=== PATIENT | female | born 2000 | race African-American/Black ===

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

== ENCOUNTER 2021-03-31 18:49 | Emergency (ER) | payer OTHER ==
[2021-03-31 19:29] VITALS: BP 132/74; PULSE 65; RESP 20; TEMP 98.1
[2021-03-31] MEDS ORDERED: SODIUM CHLORIDE 0.9% 1,000 ML IV STA (20:19)
[2021-03-31 21:07] LABS: Basophils # (A) 0.1 k/uL (0-0.2); Basophils % (A) 1 %; Eosinophils # (A) 0.3 k/uL (0-0.7); Eosinophils % (A) 4 %; HGB 11.6 gm/dL (11.4-16.0); Lymphocytes # (A) 2.8 k/uL (1.0-4.8); Lymphocytes % (A) 35 %; MCH 30.6 pg (25.0-35.0); MCHC 32.3 g/dL (31.0-37.0); MCV 94.9 fL (80.0-100.0); Mean Platelet Volume 8.2; Monocytes # (A) 0.4 k/uL (0-1.0); Monocytes % (A) 5 %; Neutrophils # (A) 4.2 k/uL (1.3-7.7); Neutrophils % (A) 53 %; Platelet Count 263 k/uL (150-450); RDW 12.5 % (11.5-15.5); WBC 7.9 k/uL (4.0-11.0)
[2021-03-31 21:15] LABS: ALT 12 U/L (4-34); AST 21 U/L (14-36); African American GFR (CKD) >90 (>60 ml/min/1.73 sqM); Alkaline Phosphatase 49 U/L (38-126); Anion Gap 7 mmol/L; Blood Urea Nitrogen 8 mg/dL (7-17); Calcium 9.9 mg/dL (8.4-10.2); Carbon Dioxide 24 mmol/L (22-30); Chloride 108 mmol/L (98-107); Glucose 79 mg/dL (74-99); Non-African American GFR(CKD) >90 (>60 ml/min/1.73 sqM); Potassium 4.3 mmol/L (3.5-5.1); Sodium 139 mmol/L (137-145); Total Bilirubin 0.3 mg/dL (0.2-1.3); Total Protein 6.8 g/dL (6.3-8.2)
--- NOTE | 2021-03-31 21:26 | US ---
EXAMINATION TYPE: Transabdominal DATE OF EXAM: 03/31/2021 8:59 PM COMPARISON: NONE CLINICAL HISTORY: vaginal bleeding. Bleeding x 1 day, 2, para 1 EXAM PERFORMED: Transabdominal (TA) EXAM MEASUREMENTS: GESTATIONAL AGE / DATING Physician Established: Not yet established Dates by LMP: (4 weeks/1 days) EDC: 12/07/2021 Dates by First Scan: No previous this is first scan Dates by Current Scan for: No IUP seen at this time MATERNAL ANATOMY Uterus: 7.8 x 6.1 x 5.8cm Right Ovary: 2.7 x 2.2 x 2.3cm Left Ovary: 3.2 x 1.4 x 2.4cm Post CDS / Adnexa: wnl Presence of free fluid: no Presence of corpus luteal cyst: not seen Presence of subchorionic bleed: no GESTATION / SURVEY IUP: No IUP seen at this time Date of LMP: 03/02/2021 Beta HcG (if available): Not available at time of exam IMPRESSION: 1. Interpretation assumes positive beta-hCG. 2. No Intrauterine uterine gestational sac or yolk sac is seen. Differential diagnosis includes marshall y nonvisualized , nonvisualized ectopic or failed . Correlate with beta h CG and ultrasound. 3. Unremarkable sonographic appearance of the uterus and bilateral ovaries.
[2021-03-31 21:33] LABS: HCG,Quantitative Serum 375.1 mIU/mL
--- NOTE | 2021-03-31 21:49 | ED ---
Female Urogenital HPI - General Chief complaint: Vaginal Bleeding Stated complaint: Early /Vaginal Bleeding Time Seen by Provider: 03/31/21 20:05 Source: patient Mode of arrival: ambulatory Limitations: no limitations - History of Present Illness Initial comments: 21-year-old female, 8 weeks , presenting to the emergency department with a chief complaint of vaginal bleeding. Patient reports that she noticed some bleeding after her boyfriend was inserted his fingers in her vagina for stimulation. The boyfriend reports that once remove his fingers, he noticed a little bit of blood, bright red. She states then the avoid any intercourse. Patient reports that has been no bleeding since. This was earlier in the day. She denies any vaginal itching, discharge or foul smell. Denies increased urgency or frequency or dysuria. Denies any abdominal or back pain. Denies any nausea vomiting or diarrhea. Last pressure. 03/02/21. States she has an appointment with a clinic on Saturday. Last Menstrual Period: 03/04/21 - Related Data Home Medications Medication Instructions Recorded Confirmed Omeprazole [PriLOSEC] 1 tab PO ONCE 12/04/20 12/04/20 Ondansetron [Zofran] 4 mg PO Q8HR PRN 12/04/20 12/04/20 Pnv No.95/Ferrous Fum/Folic AC 1 each PO ONCE 12/04/20 12/04/20 [ Multivitamin Tablet] Allergies Allergy/AdvReac Type Severity Reaction Status Date / Time No Known Allergies Allergy Verified 03/31/21 19:30 Review of Systems ROS Statement: Those systems with pertinent positive or pertinent negative responses have been documented in the HPI. ROS Other: All systems not noted in ROS Statement are negative. Past Medical History Past Medical History: GERD/Reflux Additional Past Medical History / Comment(s): Pt reports issues with kidneys when she was 15 History of Any Multi-Drug Resistant Organisms: None Reported Past Surgical History: No Surgical Hx Reported Past Anesthesia/Blood Transfusion Reactions: No Reported Reaction Past Psychological History: No Psychological Hx Reported Smoking Status: Current every day smoker Past Alcohol Use History: None Reported Past Drug Use History: Marijuana - Past Family History Mother History Unknown: Yes Family Medical History: Asthma, Diabetes Mellitus, Hypertension Additional Family Medical History / Comment(s): Uterine cancer General Exam Limitations: no limitations General appearance: alert, in no apparent distress Head exam: Present: atraumatic, normocephalic, normal inspection Eye exam: Present: normal appearance, PERRL, EOMI Pupils: Present: normal accommodation ENT exam: Present: normal exam, normal oropharynx, mucous membranes moist Neck exam: Present: normal inspection, full ROM. Absent: tenderness Respiratory exam: Present: normal lung sounds bilaterally. Absent: respiratory distress Cardiovascular Exam: Present: regular rate, normal rhythm, normal heart sounds. Absent: systolic murmur, diastolic murmur, rubs GI/Abdominal exam: Present: soft. Absent: distended, tenderness, guarding, rebound, rigid Extremities exam: Present: normal inspection, full ROM, normal capillary refill. Absent: tenderness, pedal edema, joint swelling Back exam: Present: normal inspection, full ROM. Absent: tenderness Neurological exam: Present: alert, oriented X3 Psychiatric exam: Present: normal affect, normal mood Skin exam: Present: warm, dry, intact, normal color Course Vital Signs 03/31/21 19:25 Temperature 98.1 F Pulse Rate 65 Respiratory 20 Rate Blood Pressure 132/74 O2 Sat by Pulse 100 Oximetry Medical Decision Making - Medical Decision Making 21-year-old female, , 8 weeks presents to emergency Department with chief complaint of vaginal bleeding. On physical examination, patient is well-appearing and resting comfortable. No abdominal tenderness. Pelvic examination was offered, she declined. Laboratory work obtained was unremarkable. Patient was not able to give a urine sample. Beta hCG Quant was 375. Ultrasound, transvaginal, performed shows no intrauterine gestational sac seen yet. I do suspect that it is too early to detect anything at this time. Patient has an appointment in 2 days with the clinic where they will obtain a repeat ultrasound. I also advised her to obtain a repeat beta hCG. Patient is fully understanding and agreeable. Blood type is A+. Return parameters were discussed with patient is a 70 agreeable. Case discussed physician. - Lab Data Result diagrams: 03/31/21 20:27 03/31/21 20:27 Lab Results 03/31/21 03/31/21 03/31/21 Range/Units 20:15 20:27 20:27 WBC 7.9 (4.0-11.0) k/uL RBC 3.80 (3.80-5.40) m/uL Hgb 11.6 (11.4-16.0) gm/dL Hct 36.0 (34.0-46.0) % MCV 94.9 (80.0-100.0) fL MCH 30.6 (25.0-35.0) pg MCHC 32.3 (31.0-37.0) g/dL RDW 12.5 (11.5-15.5) % Plt Count 263 (150-450) k/uL MPV 8.2 Neutrophils % 53 % Lymphocytes % 35 % Monocytes % 5 % Eosinophils % 4 % Basophils % 1 % Neutrophils # 4.2 (1.3-7.7) k/uL Lymphocytes # 2.8 (1.0-4.8) k/uL Monocytes # 0.4 (0-1.0) k/uL Eosinophils # 0.3 (0-0.7) k/uL Basophils # 0.1 (0-0.2) k/uL Sodium 139 (137-145) mmol/L Potassium 4.3 (3.5-5.1) mmol/L Chloride 108 H (98-107) mmol/L Carbon Dioxide 24 (22-30) mmol/L Anion Gap 7 mmol/L BUN 8 (7-17) mg/dL Creatinine 0.67 (0.52-1.04) mg/dL Est GFR (CKD-EPI)AfAm >90 (>60 ml/min/1.73 sqM) Est GFR (CKD-EPI)NonAf >90 (>60 ml/min/1.73 sqM) Glucose 79 (74-99) mg/dL Calcium 9.9 (8.4-10.2) mg/dL Total Bilirubin 0.3 (0.2-1.3) mg/dL AST 21 (14-36) U/L ALT 12 (4-34) U/L Alkaline Phosphatase 49 (38-126) U/L Total Protein 6.8 (6.3-8.2) g/dL Albumin 4.0 (3.5-5.0) g/dL HCG, Quant 375.1 mIU/mL Blood Type A Positive Blood Type Recheck A Pos Bld Type Recheck Status No Antibody Screen NEGATIVE Disposition Clinical Impression: Vaginal bleeding Disposition: HOME SELF-CARE Condition: Stable Instructions (If sedation given, give patient instructions): First Trimester (ED) Additional Instructions: Follow-up with her OB. Return to emergency department if symptoms worsen. Is patient prescribed a controlled substance at d/c from ED?: No Referrals: Abrahan Castillo [Primary Care Provider] - 1-2 days Time of Disposition: 21:49
== END 2021-03-31 22:29 | disposition home or self-care (01) ==
LOC: EC 18:49
DX: O46.91 Antepartum hemorrhage, unspecified, first trimester (principal); O99.611 Diseases of the digestive system complicating pregnancy, first trimester; O99.331 Smoking (tobacco) complicating pregnancy, first trimester; F17.200 Nicotine dependence, unspecified, uncomplicated; K21.9 Gastro-esophageal reflux disease without esophagitis; Z79.899 Other long term (current) drug therapy; Z3A.00 Weeks of gestation of pregnancy not specified
CPT/HCPCS: 36415; 76801; 80053; 84702; 85025; 86850; 86900; 86901; 96360; 99284

== ENCOUNTER 2021-04-05 11:23 | Emergency (ER) | payer OTHER ==
[2021-04-05 11:33] VITALS: BP 128/83; PULSE 57; RESP 18; TEMP 98.3
[2021-04-05 13:11] LABS: Appearance,Urine Cloudy (Clear); Bacteria,Urine Rare /hpf; Bilirubin,Urine Negative (Negative); Blood,Urine Large (Negative); Color,Urine Light Red; Glucose,Urine (UA) Negative (Negative); Ketones,Urine Trace (Negative); Leukocyte Esterase,Urine Negative (Negative); Mucus,Urine Occasional /hpf; Nitrite,Urine Negative (Negative); PH, Urine 5.5 (5.0-8.0); Protein,Urine 1+ (Negative); RBC,Urine >182 /hpf (0-5); Specific Gravity,Urine 1.034 (1.001-1.035); Squamous Epithelial Cell,Urine 2 /hpf (0-4); Urobilinogen,Urine <2.0 mg/dL (<2.0); WBC,Urine 10 /hpf (0-5)
--- NOTE | 2021-04-05 15:27 | US ---
EXAMINATION TYPE: Transabdominal DATE OF EXAM: 04/05/2021 3:04 PM COMPARISON: 03/31/21 CLINICAL HISTORY: bleeding, cramping. Heavy bleeding for 1 hour. HCG 37 EXAM PERFORMED: Transabdominal (TA) EXAM MEASUREMENTS: GESTATIONAL AGE / DATING Dates by LMP: (4 weeks/6 days) EDC: 12/07/2021 MATERNAL ANATOMY Uterus: 9.6x4.8x5.5cm Right Ovary: 2.8x1.3x2.1cm Left Ovary: 3.2x1.2x1.5cm Post CDS / Adnexa: WNL Presence of free fluid: No Presence of corpus luteal cyst: No Presence of subchorionic bleed: No GESTATION / SURVEY IUP: No IUP seen at this time Date of LMP: 03/02/21 Beta HcG (if available): 37 Endometrium measures 1.4cm Grayscale, color Doppler, spectral Doppler imaging performed of the ovaries, vascular waveforms are n oted bilaterally, there is color flow IMPRESSION: The endometrium appears prominently but is less thick than on prior exam, correlate with serial beta hCG. There is no adnexal mass or intrauterine identified. Follow-up as indicated.
--- NOTE | 2021-04-05 16:21 | ED ---
General Adult HPI - General Chief complaint: Vaginal Bleeding Stated complaint: early , vaginal bleeding Time Seen by Provider: 04/05/21 13:58 Source: patient, RN notes reviewed Mode of arrival: ambulatory Limitations: no limitations - History of Present Illness Initial comments: Patient is a 21-year-old female that presents to emergency department complaining of vaginal spotting and cramping. She is 5 weeks . Last vessel cycle was 03/02/2021. She'll the cramping was very mild. She has had previous pregnancies in the past with no issue. She thinks that she is A+ but is not 100% for certain. She denied any other issues or complaints this time. She denied any chest pain shortness breath headache nausea vomiting diarrhea con stipation fever fatigue chills - Related Data Home Medications Medication Instructions Recorded Confirmed Omeprazole [PriLOSEC] 1 tab PO ONCE 12/04/20 12/04/20 Ondansetron [Zofran] 4 mg PO Q8HR PRN 12/04/20 12/04/20 Pnv No.95/Ferrous Fum/Folic AC 1 each PO ONCE 12/04/20 12/04/20 [ Multivitamin Tablet] Allergies Allergy/AdvReac Type Severity Reaction Status Date / Time No Known Allergies Allergy Verified 04/05/21 11:31 Review of Systems ROS Statement: Those systems with pertinent positive or pertinent negative responses have been documented in the HPI. ROS Other: All systems not noted in ROS Statement are negative. Past Medical History Past Medical History: GERD/Reflux Additional Past Medical History / Comment(s): Pt reports issues with kidneys when she was 15 History of Any Multi-Drug Resistant Organisms: None Reported Past Surgical History: No Surgical Hx Reported Past Anesthesia/Blood Transfusion Reactions: No Reported Reaction Past Psychological History: No Psychological Hx Reported Smoking Status: Former smoker Past Alcohol Use History: None Reported Past Drug Use History: Marijuana - Past Family History Mother History Unknown: Yes Family Medical History: Asthma, Diabetes Mellitus, Hypertension Additional Family Medical History / Comment(s): Uterine cancer General Exam Limitations: no limitations General appearance: alert, in no apparent distress Head exam: Present: atraumatic, normocephalic, normal inspection Eye exam: Present: normal appearance, PERRL, EOMI. Absent: scleral icterus, conjunctival injection, periorbital swelling ENT exam: Present: normal exam Neck exam: Present: normal inspection Respiratory exam: Present: normal lung sounds bilaterally. Absent: respiratory distress, wheezes, rales, rhonchi, stridor Cardiovascular Exam: Present: regular rate, normal rhythm, normal heart sounds. Absent: systolic murmur, diastolic murmur, rubs, gallop, clicks GI/Abdominal exam: Present: soft, normal bowel sounds. Absent: distended, tenderness, guarding, rebound, rigid External exam: Present: normal external exam. Absent: erythema, swelling Speculum exam: Present: vaginal bleeding Extremities exam: Present: normal inspection, full ROM, normal capillary refill. Absent: tenderness, pedal edema, joint swelling, calf tenderness Neurological exam: Present: alert, oriented X3 Psychiatric exam: Present: normal affect, normal mood Skin exam: Present: warm, dry, intact, normal color. Absent: rash Course Vital Signs 04/05/21 11:31 Temperature 98.3 F Pulse Rate 57 L Respiratory 18 Rate Blood Pressure 128/83 O2 Sat by Pulse 99 Oximetry Medical Decision Making - Medical Decision Making 2-year-old female with vaginal bleeding and cramping, 5 weeks . Urine hCG, urinalysis, serum hCG, ABO/Rh fracture, ultrasound ordered. Serum hCG 37, urinalysis shows moderate red blood cells. Ultrasound shows no intrauterine at this time. Serial hCGs was recommended. Patient was written a prescription for repeat hCGs and 48 hours. Nurse reported that patient left after giving blood for blood type. Patient was instructed that in her best interest to stay until results came in. Case discussed with Dr. Richard. - Lab Data Lab Results 04/05/21 04/05/21 04/05/21 Range/Units 12:16 12:16 14:49 HCG, Quant 37.1 mIU/mL Urine Color Light Red Urine Appearance Cloudy H (Clear) Urine pH 5.5 (5.0-8.0) Ur Specific Sheldon 1.034 (1.001-1.035) Urine Protein 1+ H (Negative) Urine Glucose (UA) Negative (Negative) Urine Ketones Trace H (Negative) Urine Blood Large H (Negative) Urine Nitrite Negative (Negative) Urine Bilirubin Negative (Negative) Urine Urobilinogen <2.0 (<2.0) mg/dL Ur Leukocyte Esterase Negative (Negative) Urine RBC >182 H (0-5) /hpf Urine WBC 10 H (0-5) /hpf Ur Squamous Epith Cells 2 (0-4) /hpf Urine Bacteria Rare H (None) /hpf Urine Mucus Occasional H (None) /hpf Trichomonas Ag (Rapid) Positive H (Negative) Disposition Clinical Impression: Threatened Disposition: HOME SELF-CARE Condition: Stable Instructions (If sedation given, give patient instructions): Dysmenorrhea (ED) Additional Instructions: Please return to the Emergency Department if symptoms worsen or any other concerns. Repeat beta hCGs within 48 hours. follow-up with SENIOR PROGRAM MANAGER this is possible. Is patient prescribed a controlled substance at d/c from ED?: No Referrals: Abrahan Castillo [Primary Care Provider] - 1-2 days Time of Disposition: 16:38
[2021-04-06 16:42] LABS: C. trachomatis,PCR Negative (Neg,Equiv); Chlamydia trachomatis Source Vagina; N. gonorrhoeae,PCR Negative (Neg,Equiv); Neisseria Source Vagina
== END 2021-04-05 16:20 | disposition home or self-care (01) ==
LOC: EC 11:23
DX: O20.0 Threatened abortion (principal); K21.9 Gastro-esophageal reflux disease without esophagitis; Z87.891 Personal history of nicotine dependence; F12.90 Cannabis use, unspecified, uncomplicated; Z3A.01 Less than 8 weeks gestation of pregnancy
CPT/HCPCS: 36415; 76801; 81001; 84702; 86900; 86901; 87070; 87491; 87591; 87808; 99284

== ENCOUNTER → 2021-04-07 | Outpatient (CLI) | payer OTHER | END | disposition home or self-care (01) | LOC: LABWHC1 11:10 | PROVIDERS: ATTEND Physician Assistant Medical | DX: O20.0 Threatened abortion (principal); Z3A.00 Weeks of gestation of pregnancy not specified | CPT/HCPCS: 36415; 84702 ==

== ENCOUNTER → 2021-04-09 | Outpatient (CLI) | payer OTHER | END | disposition home or self-care (01) | LOC: LABMAIN 14:50 | PROVIDERS: ATTEND Physician Assistant Medical | DX: O20.0 Threatened abortion (principal); Z3A.00 Weeks of gestation of pregnancy not specified | CPT/HCPCS: 36415; 84702 ==

== ENCOUNTER 2021-04-11 13:07 | Emergency (ER) | payer OTHER ==
--- NOTE | 2021-04-11 17:42 | ED ---
Female Urogenital HPI - General Chief complaint: Vaginal Bleeding Stated complaint: poss ectopic preg Time Seen by Provider: 04/11/21 15:40 Source: patient, family, RN notes reviewed, old records reviewed Mode of arrival: ambulatory Limitations: no limitations - History of Present Illness Initial comments: Patient is a 21-year-old female presenting to the emergency department for a recheck. Patient went to have an ultrasound today, they told her that they did not see an IUP, and a test was negative so they sent her in to ER for possible ectopic . Patient believes she should be about 5-6 weeks along, over the past week or 2 she's been having intermittent vaginal bleeding. She had a positive test a few weeks ago, she developed another one today which was negative. She did have a little bit of cramping last week but she has no pain today. She has been having serial hCGs done over the past 2 weeks. Her last draw was about 2 days ago, it was 6.2. She had an ultrasound done here on 04/05/2021 which showed no IUP at that time. He denies any fevers or chills, no chest pain or shortness of breath. She denies having any dysuria. She has no further complaints at this time. - Related Data Home Medications Medication Instructions Recorded Confirmed Omeprazole [PriLOSEC] 1 tab PO ONCE 12/04/20 12/04/20 Ondansetron [Zofran] 4 mg PO Q8HR PRN 12/04/20 12/04/20 Pnv No.95/Ferrous Fum/Folic AC 1 each PO ONCE 12/04/20 12/04/20 [ Multivitamin Tablet] Allergies Allergy/AdvReac Type Severity Reaction Status Date / Time No Known Allergies Allergy Verified 04/11/21 16:31 Review of Systems ROS Statement: Those systems with pertinent positive or pertinent negative responses have been documented in the HPI. ROS Other: All systems not noted in ROS Statement are negative. Past Medical History Past Medical History: GERD/Reflux Additional Past Medical History / Comment(s): Pt reports issues with kidneys when she was 15 History of Any Multi-Drug Resistant Organisms: None Reported Past Surgical History: No Surgical Hx Reported Past Anesthesia/Blood Transfusion Reactions: No Reported Reaction Past Psychological History: No Psychological Hx Reported Smoking Status: Former smoker Past Alcohol Use History: None Reported Past Drug Use History: Marijuana - Past Family History Mother History Unknown: Yes Family Medical History: Asthma, Diabetes Mellitus, Hypertension Additional Family Medical History / Comment(s): Uterine cancer General Exam - General Exam Comments Initial Comments: GENERAL: Patient is well-developed and well-nourished. Patient is nontoxic and in no acute distress. HEAD: Atraumatic, normocephalic. EYES: Pupils equal round and reactive to light, extraocular movements intact, sclera anicteric, conjunctiva are normal. Eyelids were unremarkable. LUNGS: Unlabored respirations. Breath sounds clear to auscultation bilaterally and equal. No wheezes rales or rhonchi. HEART: Regular rate and rhythm without murmurs, rubs or gallops. ABDOMEN: Soft, nontender, normoactive bowel sounds. No guarding, no rebound. No masses appreciated. : Deferred MUSCULOSKELETAL: Normal extremities with adequate strength and normal range of motion, no pitting or edema. No clubbing or cyanosis. NEUROLOGICAL: Patient is alert and oriented x 3. SKIN: Warm, Dry, normal turgor, no rashes or lesions noted. Limitations: no limitations Course Vital Signs 04/11/21 13:46 Temperature 98.2 F Pulse Rate 77 Respiratory 18 Rate Blood Pressure 113/65 O2 Sat by Pulse 96 Oximetry Medical Decision Making - Medical Decision Making Patient is a 21-year-old female here for a recheck. She was sent in by the [facility] as they did not see an IUP and were concerned for ectopic. She has no belly pain today. She had an hCG drawn 2 days ago which was 6.2. I did re-jaw the ECG today, just 2.9, this is considered normal. Patient is not having any abdominal pain. Her blood type is A+. I discussed with patient that she most likely had a miscarriage. There is no concerns for ectopic at this time since she is not . She is stable for discharge. She is agreeable to this plan of care. She can follow up with her ELECTRONICS ENGINEER. - Lab Data Lab Results 04/11/21 Range/Units 16:46 HCG, Quant 2.9 mIU/mL Disposition Clinical Impression: Vaginal bleeding Disposition: HOME SELF-CARE Condition: Stable Instructions (If sedation given, give patient instructions): Miscarriage (ED) Additional Instructions: Please return to the Emergency Department if symptoms worsen or any other concerns. Follow-up with your ELECTRONICS ENGINEER as needed. Is patient prescribed a controlled substance at d/c from ED?: No Referrals: Abrahan Castillo [Primary Care Provider] - 1-2 days Time of Disposition: 17:46
[2021-04-11 18:08] VITALS: BP 129/79; PULSE 78; RESP 16; TEMP 98
== END 2021-04-11 18:07 | disposition home or self-care (01) ==
LOC: EC 13:07
DX: N93.9 Abnormal uterine and vaginal bleeding, unspecified (principal); K21.9 Gastro-esophageal reflux disease without esophagitis; Z79.899 Other long term (current) drug therapy; Z87.891 Personal history of nicotine dependence
CPT/HCPCS: 36415; 84702; 99284

== ENCOUNTER 2021-10-17 14:13 | Outpatient (CLI) | payer OTHER ==
[2021-10-17 14:46] LABS: Appearance,Urine Clear (Clear); Bilirubin,Urine Negative (Negative); Blood,Urine Negative (Negative); Color,Urine Colorless; Glucose,Urine (UA) Negative (Negative); Ketones,Urine Negative (Negative); Leukocyte Esterase,Urine Negative (Negative); Nitrite,Urine Negative (Negative); PH, Urine 6.5 (5.0-8.0); Protein,Urine Negative (Negative); Specific Gravity,Urine 1.001 (1.001-1.035); Urobilinogen,Urine <2.0 mg/dL (<2.0)
[2021-10-17 15:12] VITALS: BP 115/56; PULSE 89; RESP 16; TEMP 98
--- NOTE | 2021-11-11 11:54 | P.MSEPDOC ---
Presenting Problems - Arrival Data Date of Arrival on Unit: 10/17/21 Time of Arrival on Unit: 14:13 Mode of Transport: Ambulatory - Complaint OB-Reason for Admission/Chief Complaint: Pain, Signs/Symptoms UTI Comment: Patient presents to triage with "pink" blood in her urine at home and some cramping noted on the right lower abdomen. Medical History - Information : 2 Para: 1 Term: 1 : 0 Abortions: Spontaneous or Elective: 0 Number of Living Children: 1 - Gestational Age Gestational Age by CHEN (wks/days): 22 Weeks and 6 Days - History Complications: Smoker Comment: Patient uses a vape pen Review of Systems - Review of Systems Constitutional: No problems Breast: No problems ENT: No problems Cardiovascular: No problems Respiratory: No problems Gastrointestinal: No problems Genitourinary: No problems Musculoskeletal: No problems Neurological: No problems Skin: No problems Vital Signs - Temperature Temperature: 98.0 F Temperature Source: Temporal Artery Scan - Pulse Pulse Oximetery Pulse Rate: 89 Pulse Assessment Method: Pulse Oximetry - Respirations Respiratory Rate: 16 Oxygen Delivery Method: Room Air O2 Sat by Pulse Oximetry: 99 - Blood Pressure Sitting Blood Pressure: 115/56 Blood Pressure Mean: 75 Blood Pressure Source: Automatic Cuff Medical Screen Scoring - Assessment - Baby A Baseline FHR: 150 Heart Rate - NICHD Category: Category I (Normal) Physician Notification - Physician Notified Physician Notified Date: 10/17/21 Physician Notified Time: 14:57 Physician: Luis Padron Order Received: Yes - Notification Comment Comment: Orders given to discharge patient home with instructions, patient to keep regularly scheduled appt. Maternal Triage Index - Non-Urgent/Priority 4 Non-Urgent Priority 4: Yes Criteria Met for Priority 4: 22 6/7 presents with "pink" blood in her urine at home and some right lower abdominal "cramping" that she states is worse when she stands and feels sharp in nature. Patient did have intercourse last night. Denies vaginal bleeding. Disposition - Disposition OB Disposition: Discharge to home, Written follow up instructions reviewed Discharge Date: 10/17/21 Discharge Time: 15:04 I agree with the RN Medical Screening Exam: Yes Physician's MSE Comment: I have neither seen nor examined the patient. Case reviewed; plan agreed upon as documented in EMR&OBIX.: Yes Diagnosis: RELATED CONDITIONS, UNSPECIFIED, SECOND TRIMESTER
== END 2021-10-17 15:04 | disposition home or self-care (01) ==
LOC: FBPOP 14:13
PROVIDERS: ATTEND Obstetrics & Gynecology
DX: O26.892 Other specified pregnancy related conditions, second trimester (principal); R10.31 Right lower quadrant pain; Z3A.22 22 weeks gestation of pregnancy
CPT/HCPCS: 81003; G0463; 99213

== ENCOUNTER 2022-01-26 21:58 | Inpatient (IN) | payer OTHER ==
[2022-01-26] MEDS ORDERED: METHYLERGONOVINE 0.2 MG/ML 1 ML AMP IM PRN (23:44)
[2022-01-26] MEDS ORDERED: CARBOPROST TROMETHAMINE 250 MCG/ML 1 ML AMP IM PRN (23:44)
[2022-01-26] MEDS ORDERED: OXYTOCIN 10 UNIT/ML 1 ML VIAL IM PRN (23:44)
[2022-01-26] MEDS ORDERED: LIDOCAINE 0.5% (PF) 5 MG/ML (50 ML SDV) SQ PRN (23:44)
[2022-01-26] MEDS ORDERED: TERBUTALINE 1 MG/ML VIAL SQ PRN (23:44)
[2022-01-27] MEDS: LACTATED RINGERS 1,000 ML IV SCH ×3 (00:09→08:20)
[2022-01-27 00:13] LABS: Basophils % (A) 0 %; Eosinophils # (A) 0.1 k/uL (0-0.7); Eosinophils % (A) 1 %; HGB 11.3 gm/dL (11.4-16.0); Lymphocytes # (A) 2.4 k/uL (1.0-4.8); Lymphocytes % (A) 24 %; MCHC 32.4 g/dL (31.0-37.0); Mean Platelet Volume 9.1; Monocytes # (A) 0.5 k/uL (0-1.0); Monocytes % (A) 5 %; Neutrophils # (A) 6.6 k/uL (1.3-7.7); Neutrophils % (A) 67 %; Platelet Count 220 k/uL (150-450); RBC 3.54 m/uL (3.80-5.40); RDW 12.6 % (11.5-15.5); WBC 9.9 k/uL (4.0-11.0)
[2022-01-27] MEDS ORDERED: SODIUM CHLORIDE 0.9% 100 ML BAG ONE (00:16)
[2022-01-27] MEDS ORDERED: fentaNYL (PF) 50 MCG/ML 5 ML AMP ONE (00:16)
[2022-01-27] MEDS ORDERED: BUPIVACAINE (PF) 0.25% 30 ML VIAL ONE (00:16)
[2022-01-27 01:35] VITALS: RESP 16
[2022-01-27 02:32] LABS: Amphetamine Screen,Urine Not Detected (NotDetected); Barbiturate Screen,Urine Not Detected (NotDetected); Benzodiazepines Screen,Urine Not Detected (NotDetected); Cocaine Screen,Urine Not Detected (NotDetected); Methadone Screen, Urine Not Detected (NotDetected); Opiate Screen,Urine Not Detected (NotDetected); Oxycodone Screen, Urine Not Detected (NotDetected); Phencyclidine Screen,Urine Not Detected (NotDetected); Tricyclic Antidepressant,Urine Not Detected (NotDetected); Urn Cannabinoid Scrn Detected (NotDetected)
[2022-01-27] MEDS ORDERED: OXYTOCIN 30 UNITS/500 ML NS 30 UNIT in SALINE 1 500ML.BAG IV SCH ×2 (06:30→09:45)
[2022-01-27] MEDS ORDERED: BENZOCAINE/MENTHOL SPRAY 1 GM/SPRAY AEROSOL TOPICAL PRN (09:31)
[2022-01-27] MEDS ORDERED: HYDROCORTISONE 2.5% RECTAL CREAM 30 GM TUBE RECTAL PRN (09:31)
[2022-01-27] MEDS ORDERED: LANOLIN CREAM 5 GM TUBE TOPICAL PRN (09:31)
[2022-01-27] MEDS ORDERED: ZOLPIDEM 5 MG TAB PO PRN (09:31)
[2022-01-27] MEDS ORDERED: diphenhydrAMINE 50 MG/ML 1 ML VIAL IVP PRN ×2 (09:31)
[2022-01-27] MEDS ORDERED: SIMETHICONE 80 MG CHEWABLE PO PRN (09:31)
[2022-01-27] MEDS ORDERED: diphenhydrAMINE 25 MG CAP PO PRN (09:31)
[2022-01-27] MEDS ORDERED: diphenhydrAMINE 50 MG CAP PO PRN (09:31)
--- NOTE | 2022-01-27 09:38 | P.PROBDLV ---
Vaginal Delivery Note - . Vaginal Delivery Note: This is a 21-year-old 011 at 37-3/7 weeks that presented to labor and delivery last evening with complaints of regular painful contractions. Patient made no was noted cervical change in triage therefore is admitted to labor and delivery. Patient quickly requested epidural which was placed without difficulty by the anesthesia department. Patient made minimal progress through the evening with noted effacement of the cervix but no true dilation. Amniotomy was performed and clear fluid was obtained. Patient in addition underwent a Pitocin augmentation of labor. Patient quickly progressed to complete was placed in a modified lithotomy position began pushing and had a normal spontaneous vaginal delivery of a viable male at 910, weight of 5 lbs. 7 oz., Apgars of 8 and 9 at one and 5 minutes respectively. A spontaneous cry was noted at . After two-minute delayed the umbilical cord was doubly clamped and cut and the was handed to the maternal abdomen. The placenta was delivered spontaneously intact with a three-vessel cord being noted. Uterus was noted to be firm and below the umbilicus. No vaginal lacerations were appreciated on inspection. All counts were noted be correct 2. Patient and infant tolerated delivery well and are resting comfortably.
[2022-01-27] MEDS: IBUPROFEN 600 MG TAB PO SCH ×4 (11:11→23:07)
[2022-01-27] MEDS: SENNOSIDES-DOCUSATE SODIUM 1 EACH TAB PO SCH (19:53)
[2022-01-27] MEDS: ACETAMINOPHEN TAB 325 MG TAB PO PRN (19:56)
[2022-01-28] MEDS: IBUPROFEN 600 MG TAB PO SCH ×2 (05:06→10:53)
[2022-01-28] MEDS: ACETAMINOPHEN TAB 325 MG TAB PO PRN (05:11)
[2022-01-28 06:08] LABS: Basophils % (A) 0 %; Eosinophils # (A) 0.2 k/uL (0-0.7); Eosinophils % (A) 2 %; HCT 30.7 % (34.0-46.0); HGB 9.9 gm/dL (11.4-16.0); Lymphocytes # (A) 2.5 k/uL (1.0-4.8); Lymphocytes % (A) 23 %; MCH 31.9 pg (25.0-35.0); MCHC 32.1 g/dL (31.0-37.0); MCV 99.5 fL (80.0-100.0); Mean Platelet Volume 8.9; Monocytes # (A) 0.4 k/uL (0-1.0); Monocytes % (A) 4 %; Neutrophils # (A) 7.3 k/uL (1.3-7.7); Neutrophils % (A) 69 %; Platelet Count 186 k/uL (150-450); RBC 3.09 m/uL (3.80-5.40); RDW 12.3 % (11.5-15.5); WBC 10.5 k/uL (4.0-11.0)
[2022-01-28 08:54] VITALS: BP 115/71; PULSE 61; TEMP 98.3
[2022-01-28] MEDS: SENNOSIDES-DOCUSATE SODIUM 1 EACH TAB PO SCH (08:56)
--- NOTE | 2022-01-28 09:25 | P.DS ---
Providers Date of admission: 01/26/22 23:36 Expected date of discharge: 01/28/22 Attending physician: Luis Padron Primary care physician: Stated None - Discharge Diagnosis(es) (1) 37 weeks gestation of Current Visit: Yes Status: Acute (2) Marijuana abuse Current Visit: Yes Status: Acute (3) Active labor Current Visit: No Status: Acute (4) Status post vaginal delivery Current Visit: Yes Status: Acute Hospital Course: This is a 21-year-old 3 now para 2012 that presented to labor and delivery at 37-3/7 weeks with complaints of regular painful contractions. Patient made noted cervical change in triage therefore is admitted to labor and delivery. Patient was receiving routine care which has been essentially uncomplicated. Patient did admit to marijuana use during the . Once patient was admitted to labor and delivery she did request an epidural quite quickly after admission. Epidural was placed without difficulty by the anesthesia department. Patient underwent amniotomy and clear fluid was obtained. Patient did stall after epidural therefore Pitocin augmentation of labor was begun. Patient progressed quickly to complete began pushing and had a normal spontaneous vaginal delivery of a viable male at 910 on 01/27, weight of 5 lbs. 7 oz. Patient did not sustain any vaginal lacerations during delivery. Patient's course has been uneventful. On this day #1 she is ambulating and voiding without difficulty. She is tolerating a regular diet without nausea or vomiting. She states her pain is well- controlled. She would like discharge home this morning. Patient Condition at Discharge: Good Plan - Discharge Summary New Discharge Prescriptions: No Action Pnv No.95/Ferrous Fum/Folic AC [ Multivitamin Tablet] 1 each PO ONCE Discharge Medication List Pnv No.95/Ferrous Fum/Folic AC [ Multivitamin Tablet] 1 each PO ONCE 12/04/20 [History] Follow up Appointment(s)/Referral(s): Luis Padron MD [STAFF PHYSICIAN] - 6 Weeks Patient Instructions/Handouts: Vaginal Delivery (DC), Vaginal Delivery (GEN) Discharge Disposition: HOME SELF-CARE
--- NOTE | 2022-01-30 07:49 | P.HPOB ---
History of Present Illness H&P Date: 01/27/22 Chief Complaint: IUP at 37 and 3, active labor This is a 21-year-old at 37-3/7 weeks, estimated due date of 02/14. Patient presents with regular painful contractions. Patient was noted to make cervical change in triage and was admitted to labor and delivery. Patient is receiving routine care which has been essentially uncomplicated. Patient notes good movement denies vaginal bleeding or loss of fluid. On bloodwork this patient has a blood type of A+, rubella status immune, B surface antigen negative, HIV negative, RPR is nonreactive, group beta strep cultures are negative. Patient does admit to THC use during the . Review of Systems Constitutional: Denies chills, Denies fatigue, Denies fever Ears, nose, mouth and throat: Denies headache Cardiovascular: Denies leg edema Respiratory: Denies dyspnea Gastrointestinal: Denies constipation, Denies diarrhea, Denies nausea, Denies vomiting Genitourinary: Reports Past Medical History Past Medical History: GERD/Reflux, Hypertension Additional Past Medical History / Comment(s): Pt reports issues with kidneys when she was 15 History of Any Multi-Drug Resistant Organisms: None Reported Past Surgical History: No Surgical Hx Reported Past Anesthesia/Blood Transfusion Reactions: No Reported Reaction Past Psychological History: No Psychological Hx Reported Smoking Status: Never smoker Past Alcohol Use History: None Reported Past Drug Use History: Marijuana Additional Drug Use History / Comment(s): Pt reports marijuana use daily - Past Family History Mother History Unknown: Yes Family Medical History: Asthma, Diabetes Mellitus, Hypertension Additional Family Medical History / Comment(s): Uterine cancer Medications and Allergies Home Medications Medication Instructions Recorded Confirmed Type Pnv No.95/Ferrous Fum/Folic AC 1 each PO ONCE 12/04/20 01/26/22 History [ Multivitamin Tablet] Allergies Allergy/AdvReac Type Severity Reaction Status Date / Time No Known Allergies Allergy Verified 01/26/22 22:16 Exam Osteopathic Statement: *. No significant issues noted on an osteopathic structural exam other than those noted in the History and Physical/Consult. 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 heart tones returned be category 1 and she is briana every 3 minutes. Patient did receive an epidural prior to my arrival. Results Result Diagrams: 01/26/22 23:59 Abnormal Lab Results - Last 24 Hours (Table) 01/26/22 01/27/22 Range/Units 23:59 01:30 RBC 3.54 L (3.80-5.40) m/uL Hgb 11.3 L (11.4-16.0) gm/dL U Marijuana (THC) Screen Detected H (NotDetected) Assessment and Plan (1) 37 weeks gestation of Current Visit: Yes Status: Acute Code(s): Z3A.37 - 37 WEEKS GESTATION OF SNOMED Code(s): 96441409 (2) Marijuana abuse Current Visit: Yes Status: Acute Code(s): F12.10 - CANNABIS ABUSE, UNCOMPLICATED SNOMED Code(s): 00299804 (3) Active labor Current Visit: No Status: Acute Code(s): SAI3782 - SNOMED Code(s): 557995185 Plan: 21-year-old at 37-3/7 weeks presented with complaints of regular painful contractions. Patient was admitted to labor and delivery. Patient requested epidural quickly after admission. Anticipate spontaneous vaginal delivery.
== END 2022-01-28 12:45 | disposition home or self-care (01) | DRG 807 ==
LOC: FBPOP 21:58 → 4FBP 23:36
PROVIDERS: ADMIT Obstetrics & Gynecology Obstetrics; ATTEND Obstetrics & Gynecology
PROC: 10907ZC Drainage of Amniotic Fluid, Therapeutic from Products of Conception, Via Natural or Artificial Opening (ICD-10-PCS; principal; 2022-01-27)
PROC: 10E0XZZ Delivery of Products of Conception, External Approach (ICD-10-PCS; principal; 2022-01-27)
DX: O99.324 Drug use complicating childbirth (principal); Z37.0 Single live birth; F12.10 Cannabis abuse, uncomplicated; O16.4 Unspecified maternal hypertension, complicating childbirth; K21.9 Gastro-esophageal reflux disease without esophagitis; Z3A.37 37 weeks gestation of pregnancy; Z80.49 Family history of malignant neoplasm of other genital organs; Z82.49 Family history of ischemic heart disease and other diseases of the circulatory system; Z82.5 Family history of asthma and other chronic lower respiratory diseases; Z83.3 Family history of diabetes mellitus
CPT/HCPCS: 59025; 80306; 85025; 86850; 86900; 86901; 99213